=== PATIENT | female | born 1950 | race Two or more races ===

== ENCOUNTER 2020-09-19 07:33 | Outpatient (CLI) | payer OTHER | END 2020-09-19 07:47 | disposition home or self-care (01) | LOC: TOM 07:33 | PROVIDERS: ATTEND Internal Medicine Gastroenterology | DX: K63.5 Polyp of colon (principal); R19.5 Other fecal abnormalities; K56.50 Intestinal adhesions [bands], unspecified as to partial versus complete obstruction; K56.699 Other intestinal obstruction unspecified as to partial versus complete obstruction ==

== ENCOUNTER 2021-12-27 11:10 | Inpatient (IN) | payer OTHER ==
[~2021-12-27] VITALS: Ht 154.9 cm; Wt 136.1 kg
[2021-12-27] MEDS ORDERED: METOPROLOL SUC100 MG PO (12:13)
[2021-12-27] MEDS ORDERED: LOSARTAN POTAS100 MG PO (12:13)
[2021-12-27] MEDS ORDERED: ST. JOSEPH ASPI81 M2 PO (12:13)
[2021-12-27] MEDS ORDERED: METFORMIN HCL1000 M3 PO (12:13)
--- NOTE | 2021-12-27 12:16 | NUR ---
SE RECIBE PTE ALERTA ORIENTADA X3. PTE REFIERE TENER DOLOR ABDOMINAL CLAY DESDE HACE RENAN SEMANA. PTE REFIERE TENER HERNIA. REFERIDA A LA KELLEY DE [facility] POR DR.LOPEZ SOUZA. SE MISSY S/V Y SE UBICA.
--- NOTE | 2021-12-27 14:29 | NUR ---
SE LE ORIENTA A PACIENTE SOBRE LAS ORDENES MEDICAS, REFIERE ENTEDER LAS MISMAS. SE CANALIZA Y SE LE COLOCA LOS IVF'S, SE LE MISSY CHILDRESS MUESTRAS, SE LE REALIZA CT Y SE LE ADMINISTRAN LOS MEDICAMENTOS BA LAS ORDENES MEDICAS.
[2021-12-30] MEDS ORDERED: FOLIC ACID1 MG (16:03)
[2021-12-30] MEDS ORDERED: ATORVASTATIN CA10 MG (16:04)
[2021-12-30] MEDS ORDERED: VITAMIN B-12100 MCG (16:04)
[2021-12-30] MEDS ORDERED: CHLORTHALIDONE25 MG (16:04)
[2021-12-30] MEDS ORDERED: APRESOLINE 10MG10 MG (16:04)
[2021-12-30] MEDS ORDERED: MONTELUKAST SOD10 MG (16:04)
== END 2022-01-31 23:23 | disposition home or self-care (01) | DRG 981 ==
LOC: ER 11:10 → MEDI 18:50 → MEDJ 18:50
PROVIDERS: Surgery; ADMIT Internal Medicine; ATTEND Internal Medicine
PROC: BW21ZZZ Computerized Tomography (CT Scan) of Abdomen and Pelvis (ICD-10-PCS; 2021-12-27)
PROC: 3E0F7SF Introduction of Other Gas into Respiratory Tract, Via Natural or Artificial Opening (ICD-10-PCS; 2021-12-28)
PROC: 02HV33Z Insertion of Infusion Device into Superior Vena Cava, Percutaneous Approach (ICD-10-PCS; 2021-12-30)
PROC: 0W9F30Z Drainage of Abdominal Wall with Drainage Device, Percutaneous Approach (ICD-10-PCS; 2021-12-30)
PROC: 3E0436Z Introduction of Nutritional Substance into Central Vein, Percutaneous Approach (ICD-10-PCS; 2021-12-30)
PROC: BW21Y0Z Computerized Tomography (CT Scan) of Abdomen and Pelvis using Other Contrast, Unenhanced and Enhanced (ICD-10-PCS; 2022-01-05)
PROC: 3E0F7GC Introduction of Other Therapeutic Substance into Respiratory Tract, Via Natural or Artificial Opening (ICD-10-PCS; 2022-01-05)
PROC: 8E0ZXY6 Isolation (ICD-10-PCS; 2022-01-09)
PROC: 0KBL0ZZ Excision of Left Abdomen Muscle, Open Approach (ICD-10-PCS; principal; 2022-01-17 07:00)
DX: K65.1 Peritoneal abscess (principal); K63.1 Perforation of intestine (nontraumatic); J45.901 Unspecified asthma with (acute) exacerbation; N39.0 Urinary tract infection, site not specified; N17.8 Other acute kidney failure; N18.4 Chronic kidney disease, stage 4 (severe); E87.0 Hyperosmolality and hypernatremia; Z68.43 Body mass index [BMI] 50.0-59.9, adult; K63.2 Fistula of intestine; J90 Pleural effusion, not elsewhere classified; T81.49XA Infection following a procedure, other surgical site, initial encounter; L98.493 Non-pressure chronic ulcer of skin of other sites with necrosis of muscle; K43.9 Ventral hernia without obstruction or gangrene; D50.0 Iron deficiency anemia secondary to blood loss (chronic); E11.622 Type 2 diabetes mellitus with other skin ulcer; I12.9 Hypertensive chronic kidney disease with stage 1 through stage 4 chronic kidney disease, or unspecified chronic kidney disease; E11.22 Type 2 diabetes mellitus with diabetic chronic kidney disease; E66.01 Morbid (severe) obesity due to excess calories; B96.1 Klebsiella pneumoniae [K. pneumoniae] as the cause of diseases classified elsewhere; B96.29 Other Escherichia coli [E. coli] as the cause of diseases classified elsewhere; B96.4 Proteus (mirabilis) (morganii) as the cause of diseases classified elsewhere; B37.2 Candidiasis of skin and nail; B96.89 Other specified bacterial agents as the cause of diseases classified elsewhere; Z79.84 Long term (current) use of oral hypoglycemic drugs; Z20.822 Contact with and (suspected) exposure to COVID-19; Z53.1 Procedure and treatment not carried out because of patient's decision for reasons of belief and group pressure